=== PATIENT | male | born 1985 | race Caucasian/White ===

== ENCOUNTER 2016-10-31 14:40 | Emergency (ER) | payer MEDICAID ==
[2016-10-31 14:53] VITALS: RESP 16
--- NOTE | 2016-10-31 15:43 | EDPHY ---
H & P Stated Complaint: pleuritic chest pain since this am HPI/ROS: HPI CHIEF COMPLAINT: Pleuritic chest pain HISTORY OF PRESENT ILLNESS: This patient otherwise healthy 30-year-old male no significant medical history, does smoke tobacco and marijuana regularly, presents to the emergency room if you seen at [facility] with sharp stabbing chest pain. Patient states that he woke up this morning with sharp pleuritic pain in the middle his chest when he takes a deep breath in. Decided to go for a run to see if this improved his pain however the pain got worse while running and felt like he cannot take a deep breath in. He then decided to take a hot shower which did not improve his pain he then decided to get on a bike and bike to school with the pain became worse. He denies hemoptysis, productive cough, fever, recent illness, chest pain. The pain is pleuritic only hurts when he takes a deep breath in center of his chest sharp stabbing in nature. No history of PE or DVT, no history of cardiac disease in his family or sudden cardiac or cardiac arrhythmia. It is noted he went to [facility] where receive full-dose aspirin and then was referred here to the emergency room. Past Medical History: No significant medical history Past Surgical History: No significant surgical history Social History: Marijuana use, tobacco use, occasional use, is [employer] student Family History: Noncontributory ROS REVIEW OF SYSTEMS: A comprehensive 10 point review of systems is otherwise negative aside from elements mentioned in the history of present illness. Exam Constitutional triage nursing summary reviewed, vital signs reviewed, awake/ alert. Eyes normal conjunctivae and sclera, EOMI, PERRLA. HENT normal inspection, atraumatic, moist mucus membranes, no epistaxis, neck supple/ no meningismus, no raccoon eyes. Respiratory clear to auscultation bilaterally, normal breath sounds, no respiratory distress, no wheezing. Cardiovascular rate normal, regular rhythm, no murmur, no edema, distal pulses normal. Gastrointestinal soft, non-tender, no rebound, no guarding, normal bowel sounds, no distension, no pulsatile mass. Genitourinary no CVA tenderness. Musculoskeletal no midline vertebral tenderness, full range of motion, no calf swelling, no tenderness of extremities, no meningismus, good pulses, neurovascularly intact. Skin pink, warm, & dry, no rash, skin atraumatic. Neurologic awake, alert and oriented x 3, AAOx3, moves all 4 extremities equally, motor intact, sensory intact, CN II-XII intact, normal cerebellar, normal vision, normal speech. Psychiatric normal mood/affect. Heme/Lymph/Immune no lymphadenopathy. Differential diagnosis includes but is not limited to: Pleurisy, pneumomediastinum, ACS, atypical chest pain, pneumothorax, pneumonia, pulmonary embolism, aortic dissection, congestive heart failure, tumor, musculoskeletal pain, esophageal pain, GERD, peptic ulcer disease, pancreatitis Medical Decision Making: Plan for this patient on IV established, we will obtain blood work, patient be placed on full cardiac exercise specialist, IV established, fluid bolus and IV Toradol for pleuritic pain, he will have an EKG, chest x-ray , and blood work will re-evaluate shortly. Re-evaluation: EKG interpretation by me on record in [facility] system. Impression time of EKG 1551, this is sinus rhythm rate of 65, diffuse ST elevation consistent with early report pattern. Otherwise unremarkable EKG specifically no signs of ischemia, or cardiac arrhythmia. ED x-ray chest two view: Negative for acute cardiopulmonary disease. Image interpreted myself. Specifically no free air in diaphragm, no mediastinal air no subcutaneous air. Time of re-evaluation: The patient is resting comfortably here, time of re- evaluation at 4:54 p.m.: patient is resting comfortably no acute distress. Does feel much better after IV Toradol. Does still have ongoing pleuritic pain however it is improved. I did discuss the patient's blood work results x-ray and EKG. Plan for this patient is a CT angiogram of the chest. Trauma pneumomediastinum. Small pneumothorax or small pulmonary embolism. CT scan of the angiogram chest with IV contrast. The results of the study are negative for acute pulmonary embolism, no new most mediastinum, no pneumothorax , no aortic dissection unremarkable CT angiogram The study was read by Dr. Carey. I viewed the images myself on the PACS system. 1853: Did re-evaluate this patient he had a GI cocktail this did not really improve his pain. His pain is consistent with pleurisy. His D-dimer is negative troponin negative, EKG is nonischemic he has no chest pressure or shortness of breath. His CT angiogram of his chest does not show anything acute specifically no pulmonary embolism he appears well nontoxic vital signs are stable. I do feel comfortable allowing go home. I do recommend he takes anti-inflammatory pain medicine for the next week. Does not smoke cigarettes or marijuana and no strenuous exercise he does understand if he has worsening symptoms includes worsening pain he needs return to the emergency room. Source: Patient - Personal History Current Tetanus/Diphtheria Vaccine: Unsure Current Tetanus Diphtheria and Acellular Pertussis (TDAP): Unsure - Medical/Surgical History Hx Asthma: No Hx Chronic Respiratory Disease: No Hx Diabetes: No Hx Cardiac Disease: No Hx Renal Disease: No Hx Cirrhosis: No Hx Alcoholism: No Hx HIV/AIDS: No Hx Splenectomy or Spleen Trauma: No Other PMH: denies - Social History Smoking Status: Never smoked Constitutional: Initial Vital Signs Temperature (C) 36.7 C 10/31/16 14:50 Heart Rate 81 10/31/16 14:50 Respiratory Rate 16 10/31/16 14:50 Blood Pressure 137/87 H 10/31/16 14:50 O2 Sat (%) 95 10/31/16 14:50 O2 Delivery Mode Room Air Allergies/Adverse Reactions: No Known Allergies Allergy (Unverified 10/31/16 14:49) Home Medications: Medication Instructions Recorded Ibuprofen [Motrin (*)] 800 mg PO Q6-8PRN #7 tab 10/31/16 Medical Decision Making - Data Points Laboratory Results: Laboratory Results 10/31/16 15:55 10/31/16 15:55 10/31/16 10/31/16 10/31/16 15:55 15:55 15:55 WBC 15.56 10^3/uL H 10^3/uL (3.80-9.50) RBC 4.84 10^6/uL 10^6/uL (4.40-6.38) Hgb 15.6 g/dL g/dL (13.7-17.5) Hct 44.3 % % (40.0-51.0) MCV 91.5 fL fL (81.5-99.8) MCH 32.2 pg pg (27.9-34.1) MCHC 35.2 g/dL g/dL (32.4-36.7) RDW 12.4 % % (11.5-15.2) Plt Count 198 10^3/uL 10^3/uL (150-400) MPV 9.6 fL fL (8.7-11.7) Neut % (Auto) 78.0 % H % (39.3-74.2) Lymph % (Auto) 11.5 % L % (15.0-45.0) [place] % (Auto) 8.2 % % (4.5-13.0) Eos % (Auto) 1.3 % % (0.6-7.6) Baso % (Auto) 0.7 % % (0.3-1.7) Nucleat RBC Rel Count 0.0 % % (0.0-0.2) Absolute Neuts (auto) 12.15 10^3/uL H 10^3/uL (1.70-6.50) Absolute Lymphs (auto) 1.79 10^3/uL 10^3/uL (1.00-3.00) Absolute Monos (auto) 1.27 10^3/uL H 10^3/uL (0.30-0.80) Absolute Eos (auto) 0.20 10^3/uL 10^3/uL (0.03-0.40) Absolute Basos (auto) 0.11 10^3/uL H 10^3/uL (0.02-0.10) Absolute Nucleated RBC 0.00 10^3/uL 10^3/uL (0-0.01) Immature Gran % 0.3 % % (0.0-1.1) Immature Gran # 0.04 10^3/uL 10^3/uL (0.00-0.10) PT 13.6 SEC SEC (12.0-15.0) INR 1.05 (0.83-1.16) APTT 25.9 SEC SEC (23.0-38.0) D-Dimer < 0.27 ug/mLFEU ug/mLFEU (0.00-0.50) Sodium 140 mEq/L mEq/L (134-144) Potassium 4.1 mEq/L mEq/L (3.5-5.2) Chloride 105 mEq/L mEq/L (97-110) Carbon Dioxide 24 mEq/l mEq/l (22-31) Anion Gap 11 mEq/L mEq/L (8-16) BUN 14 mg/dL mg/dL (7-23) Creatinine 0.7 mg/dL mg/dL (0.7-1.3) Estimated GFR > 60 Glucose 92 mg/dL mg/dL (70-100) Calcium 9.8 mg/dL mg/dL (8.5-10.4) Magnesium 2.3 mg/dL mg/dL (1.6-2.3) Total Bilirubin 1.1 mg/dL mg/dL (0.1-1.4) Conjugated Bilirubin 0.3 mg/dL mg/dL (0.0-0.5) Unconjugated Bilirubin 0.8 mg/dL mg/dL (0.0-1.1) AST 23 IU/L IU/L (17-59) ALT 29 IU/L IU/L (21-72) Alkaline Phosphatase 50 IU/L IU/L (38-126) Troponin I < 0.012 ng/mL ng/mL (0-0.034) NT-Pro-B Natriuret Pep 77 pg/mL pg/mL (0-125) Total Protein 7.1 g/dL g/dL (6.3-8.2) Albumin 4.7 g/dL g/dL (3.5-5.0) Lipase 179.0 IU/L IU/L (23-300) Medications Given: Discontinued Medications Al Hydroxide/Mg Hydroxide (Maalox Susp) 30 ml PO ONCE ONE Stop: 10/31/16 18:05 Last Admin: 10/31/16 18:42 Dose: 30 ml Hyoscyamine Sulfate (Levsin, Hyomax-Sl) 0.25 mg PO ONCE ONE Stop: 10/31/16 18:05 Last Admin: 10/31/16 18:41 Dose: 0.25 mg Sodium Chloride (Ns) 500 mls @ 0 mls/hr IV ONCE ONE PRN Reason: As Directed Stop: 10/31/16 15:50 Last Admin: 10/31/16 16:12 Dose: 500 mls Ketorolac Tromethamine (Toradol) 30 mg IVP EDNOW ONE Stop: 10/31/16 15:51 Last Admin: 10/31/16 16:11 Dose: 30 mg Lidocaine (Lidocaine 2% Viscous) 15 ml PO ONCE ONE Stop: 10/31/16 18:05 Last Admin: 10/31/16 18:42 Dose: 15 ml Departure - Departure Disposition: Home, Routine, Self-Care Clinical Impression: Pleurisy Condition: Good Instructions: Pleurisy (ED) Additional Instructions: 1. Return to the emergency room if he develops any worsening symptoms questions or concerns includes worsening pain shortness of breath, fever, vomiting. 2. I do recommend that he take anti-inflammatory pain medicine for the next week. 3. drink lots of fluids stay well-hydrated. Referrals: NONE *PRIMARY CARE P,. [Primary Care Provider] - As per Instructions Prescriptions: Ibuprofen [Motrin (*)] 800 mg PO Q6-8PRN #7 tab
[2016-10-31] MEDS ORDERED: NS 500 ML IV ONE (15:49)
[2016-10-31] MEDS ORDERED: KETOROLAC 30 MG/1 ML SDV IVP ONE (15:50)
--- NOTE | 2016-10-31 15:53 | CPEKG ---
Heart Rate: 65 RR Interval: 923 P-R Interval: 160 QRSD Interval: 90 QT Interval: 408 QTC Interval: 425 P [place]: 74 QRS [place]: 92 T Wave [place]: 65 EKG Severity - OTHERWISE NORMAL ECG - EKG Impression: SINUS RHYTHM EKG Impression: BORDERLINE RIGHT AXIS DEVIATION EKG Impression: ST ELEV, PROBABLE NORMAL EARLY REPOL PATTERN Electronically Signed By: Abhishek Lawler 31-Oct-2016 22:46:52
[2016-10-31 16:04] LABS: % IMMATURE GRANULYOCYTES 0.3 % (0.0-1.1); ABSOLUTE IMMATURE GRANULOCYTES 0.04 10^3/uL (0.00-0.10); ADD DIFF? NO; ADD MORPH? NO; ADD SCAN? NO; ATYPICAL LYMPHOCYTE FLAG 0 (0-99); FRAGMENT RBC FLAG 0 (0-99); HEMATOCRIT 44.3 % (40.0-51.0); HEMOGLOBIN 15.6 g/dL (13.7-17.5); LEFT SHIFT FLG 0 (0-99); LIPEMIA HEMOLYSIS FLAG 90 (0-99); MEAN CELL HEMOGLOBIN 32.2 pg (27.9-34.1); MEAN CELL HEMOGLOBIN CONCENTR. 35.2 g/dL (32.4-36.7); MEAN CELL VOLUME 91.5 fL (81.5-99.8); MEAN PLATELET VOLUME 9.6 fL (8.7-11.7); PLATELET CLUMPS FLAG 0 (0-99); PLATELET COUNT 198 10^3/uL (150-400); RED BLOOD CELL COUNT 4.84 10^6/uL (4.40-6.38); RED CELL DISTRIBUTION WIDTH 12.4 % (11.5-15.2)
[2016-10-31 16:15] LABS: INR 1.05 (0.83-1.16); PROTIME(PATIENT) 13.6 SEC (12.0-15.0)
[2016-10-31 16:16] LABS: APTT 25.9 SEC (23.0-38.0)
[2016-10-31 16:32] LABS: ALANINE AMINOTRANSFERASE 29 IU/L (21-72); ALBUMIN 4.7 g/dL (3.5-5.0); ALKALINE PHOSPHATASE 50 IU/L (38-126); ANION GAP 11 mEq/L (8-16); ASPARTATE AMINOTRANSFERASE 23 IU/L (17-59); BILIRUBIN,TOTAL 1.1 mg/dL (0.1-1.4); BILIRUBIN-CONJUGATED 0.3 mg/dL (0.0-0.5); BILIRUBIN-UNCONJUGATED 0.8 mg/dL (0.0-1.1); CALCIUM 9.8 mg/dL (8.5-10.4); CARBON DIOXIDE 24 mEq/l (22-31); CHLORIDE 105 mEq/L (97-110); CREATININE 0.7 mg/dL (0.7-1.3); GLOMERULAR FILTRATION RATE > 60; GLUCOSE 92 mg/dL (70-100); MAGNESIUM 2.3 mg/dL (1.6-2.3); POTASSIUM 4.1 mEq/L (3.5-5.2); SODIUM 140 mEq/L (134-144); TOTAL PROTEIN 7.1 g/dL (6.3-8.2)
[2016-10-31 16:41] LABS: TROPONIN I < 0.012 ng/mL (0-0.034)
[2016-10-31] MEDS ORDERED: IOPAMIDOL (ISOVUE 370) 100 ML BTL IV ONE (16:59)
[2016-10-31] MEDS ORDERED: LIDOCAINE 2% VISCOUS 15 ML UDCUP PO ONE (18:04)
[2016-10-31] MEDS ORDERED: HYOSCYAMINE SULFATE 0.125 MG TAB PO ONE (18:04)
[2016-10-31] MEDS ORDERED: MAG HYDROX/AL HYDROX/SIMETH 30 ML UDCUP PO ONE (18:04)
[2016-10-31 18:50] VITALS: TEMP 98.2
[2016-10-31 19:35] VITALS: BP 123/78; PULSE 76; O2SAT 97
== END 2016-10-31 19:20 | disposition home or self-care (01) ==
DX: R09.1 Pleurisy (principal); F17.200 Nicotine dependence, unspecified, uncomplicated
CPT/HCPCS: 96374; J1885; Q9967